=== PATIENT | male | born 2005 | race Caucasian/White ===

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

== ENCOUNTER 2024-06-08 16:06 | Emergency (ER) | payer OTHER, MEDICAID, SELFPAY ==
[2024-06-08 16:16] VITALS: BP 92/62; PULSE 83; RESP 16; TEMP 36.9; O2SAT 97
--- NOTE | 2024-06-08 17:45 | DI.RAD_ITS ---
Exam(s) XR HAND LT COMPLETE EXAM: XR HAND LT COMPLETE CLINICAL HISTORY: L hand bruise, index finger swelling. TECHNIQUE: 2D digital imaging was performed. Three views. COMPARISON: No exams were available for comparison FINDINGS: BONES: No acute fracture is present. No bony destructive lesion is seen. JOINTS: No dislocation present. SOFT TISSUE: Swelling of dorsum of hand and index finger. No foreign body. IMPRESSION: Soft tissue swelling. No acute bony abnormality. DATA REPOSITORY: RADIATION DOSE DELIVERED:
--- NOTE | 2024-06-08 17:59 | ED.GENADUL_ITS ---
Discharge Plan Disposition Patient Disposition: Home Condition: Stable Discharge Details Clinical Impression: Contusion of left hand Primary Care Provider: Jenny Castañeda ED Provider: Ata Addison Home Meds and New Rx's Prescriptions: Continued Gummies Children Multivitamin 1 EACH tablet,chewable 1 ea PO DAILY melatonin 10 mg Tablet 10 mg PO HS Valtoco 10 mg/spray (0.1 mL) spray,non-aerosol 10 mg INTRANASAL ONCE PRN Patient Comments: INSTILL 1 SPRAY INTO NOSTRIL NEEDED FOR SEIZURE LASTING MORE THAN 5 MINUTES DAILY MAX 1 SPRAY trazodone 50 mg tablet 50 mg PO HS Patient Comments: TAKE ONE TABLET BY MOUTH AT BEDTIME valproic acid 250 mg capsule 250 mg PO BID guanfacine 2 mg tablet extended release 24 hr 2 mg PO HS Discharge Instructions Instructions: Minor Contusion ED Additional Instructions: You were seen in the emergency department for the moderate contusion of your left hand, please rest, ice, compress and elevate the area often, take Tylenol and ibuprofen as needed for pain. Please return for any emergent concern Referrals: Jenny Castañeda [Primary Care Provider] - Discharge Data Discharge Date/Time-TO BE ENTERED AT DEPARTURE: 06/08/24 19:01 HPI General Date/Time Provider Initiated Documentation: 06/08/24 16:23 . HPI Narrative: 19 year-old male presents to ED today by POV/ambulating with his mother with a chief complaint of swelling to L first finger and minor bruise to dorsal hand- R-hand dominant with onset unknown- patient is a poor historian due to cognitive issues- cannot state if he hit it on anything or not. Quality described as minor pain, no radiation to inability to move the hand. Severity is described as unable to quantify. Palliating factors include nothing specific attempted. Provoking factors include nothing specific. Patient not anticoagulated. Related Data Home Medications ?Medication ?Instructions ?Recorded ?Confirmed pediatric multivitamin no.30 1 ea PO DAILY 09/13/17 06/08/24 (Gummies Children Multivitamin chewable tablet) melatonin 10 mg tablet 10 mg PO HS 01/20/21 06/08/24 guanfacine 2 mg tablet,extended 2 mg PO HS 12/27/22 06/08/24 release 24 hr trazodone 50 mg tablet 50 mg PO HS 12/27/22 06/08/24 valproic acid 250 mg capsule 250 mg PO BID 12/27/22 06/08/24 diazepam 10 mg/spray (0.1 mL) 10 mg intranasal ONCE PRN 06/08/24 06/08/24 nasal spray (Valtoco) Allergies Allergy/AdvReac Type Severity Reaction Status Date / Time No Known Allergies Allergy Unverified 06/08/24 16:15 General Stated Complaint: Orthopedic ADRIANA: 4 Review of Systems All systems reviewed & are unremarkable except as noted in HPI and below Exam Narrative Exam Narrative: GENERAL APPEARANCE: Well-nourished, non-toxic, awake and alert, atraumatic, no acute distress. SKIN: Warm, pink, dry, intact, without rashes/lesions/ulcerations. HEAD: Normocephalic, atraumatic, normal hair distribution for gender/age. EYES: Normal conjunctiva, no exudates on lids/lashes. ENT: Nares patent, no circumoral cyanosis, no facial swelling NECK: Supple, trachea midline, painless cervical ROM. LUNGS/CHEST: Non-labored respirations, normal A/P diameter, symmetrical expansion, no chest wall deformity HEART (CV/PV): Regular rate, L radial pulse 2+, no peripheral edema, no JVD. ABDOMEN: Soft, non-distended, no guarding. MSK: Normal ROM, no swelling/deformity to bilateral UEs or LEs, moving all extremities without weakness, no cyanosis, spine midline without tenderness, normal curvature, minor bruise to dorsum of left hand with pain endorsed without crepitus or swelling to left index finger and anatomical snuffbox with patient intact, locomotive supervisor strength 5/5 NEURO: Mental Status AAOx4 - alert to person, place, time, events No facial droop, no forehead involvement. Motor: No focal weakness - strength 5/5 in bilateral UEs and LEs, proximal and distal, symmetric. Sensory: sensation intact to light touch globally. Gait normal: patient ambulated without ataxia into ED room. PSYCH: euthymic, cooperative, pleasant, appropriate speech Course Vital Signs Vital signs: Vital Signs Temperature 36.9 C 06/08/24 16:16 Pulse 83 06/08/24 16:16 Respiratory Rate 16 06/08/24 16:16 Blood Pressure 92/62 L 06/08/24 16:16 Pulse Oximetry 97 06/08/24 16:16 Temperature 36.9 C 06/08/24 16:16 Temperature Source Oral 06/08/24 16:16 Pulse 83 06/08/24 16:16 Respiratory Rate 16 06/08/24 16:16 Blood Pressure 92/62 L 06/08/24 16:16 Blood Pressure Position Sitting 06/08/24 16:16 Pulse Oximetry 97 06/08/24 16:16 Oxygen Delivery Method Room Air 06/08/24 16:16 Oxygen Flow Rate 0 06/08/24 16:16 Pain Level 0 06/08/24 16:16 Comment denies pain 06/08/24 16:16 Medical Decision Making This dictation utilizes [id number] dictation software and may contain unedited grammatical errors. 19 year-old male presents to ED today by POV/ambulating with his mother with a chief complaint of swelling to L first finger and minor bruise to dorsal hand- R-hand dominant with onset unknown- patient is a poor historian due to cognitive issues- cannot state if he hit it on anything or not. Quality described as minor pain, no radiation to inability to move the hand. Severity is described as unable to quantify. Palliating factors include nothing specific attempted. Provoking factors include nothing specific. Patients' medical history: developm ental disorder. Family and social history: noncontributory. Pertinent exam findings / vital signs include minor bruise to dorsum of left hand with pain endorsed without crepitus or swelling to left index finger and anatomical snuffbox with patient intact, locomotive supervisor strength 5/5. Differential / pathologies of concern include contusion, fracture. Diagnostic studies of: -XR L Hand - no acute fracture. Interventions of: -none. ED Course/Assessment/Plan: 19-year-old male with cognitive disability presents with a minor bruise to the dorsum of his left hand and endorses some mild left index finger swelling, no evidence to suspect fracture on exam or x-ray, counseled on RICE therapy and Tylenol and ibuprofen, strict return criteria for any signs of neurovascular compromise. Findings not consistent with [ ]. Disposition of Contusion of Left Hand. Patient verbalized understanding of the plan and return to ED criteria and engaged in shared decision making. Medical Records Medical records reviewed: Yes I reviewed the patient's medical records. Imaging Data Radiologic Study: Attestation: I personally reviewed and interpreted this imaging study as follows: Imaging: X-Ray Radiologist's impression: Exam: XR Left Hand Exam date and time: 06/08/2024 6:09 PM Age: 19 years old Clinical indication: Pain; Fingers; Left; Finger(s); L hand bruise, index finger swelling TECHNIQUE: Imaging protocol: Radiologic exam of the left hand. Views: 3 or more views. COMPARISON: No relevant prior studies available. FINDINGS: Bones/joints: Bone density is appropriate. Bony alignment is anatomic. No evidence for fracture. Soft tissues: There is soft tissue swelling at the base of the 2nd digit. IMPRESSION: Soft tissue swelling noted. No evidence for fracture. Dictated and Authenticated by: Luiza Almeida MD. Quality:SDOH Health Related Social Needs: No Data to Display PFSH All Active Problems (Updated 06/08/24 @ 18:54 by SUNITHA Manzanares) Contusion of left hand (Acute) Closed fracture of left great toe (Acute 01/20/21) Medical History Development disorder, child Social History Smoking/Tobacco Use Status: Never Smoking risk assessment performed?: Yes Alcohol Intake: never Drug use: Never Substance use type: does not use Housing: house Current gender identity: male Do you feel safe at home: Yes Additional Social history: mom at side, very supportive
--- NOTE | 2024-06-08 18:48 | DI.VRAD_ITS ---
PROCEDURE INFORMATION: Exam: XR Left Hand Exam date and time: 06/08/2024 6:09 PM Age: 19 years old Clinical indication: Pain; Fingers; Left; Finger(s); L hand bruise, index finger swelling TECHNIQUE: Imaging protocol: Radiologic exam of the left hand. Views: 3 or more views. COMPARISON: No relevant prior studies available. FINDINGS: Bones/joints: Bone density is appropriate. Bony alignment is anatomic. No evidence for fracture. Soft tissues: There is soft tissue swelling at the base of the 2nd digit. IMPRESSION: Soft tissue swelling noted. No evidence for fracture. Dictated and Authenticated by: Luiza Almeida MD. Orderin Azael Berumen MD
[2024-06-08 19:00] VITALS: BP 92/62; PULSE 83; RESP 16; TEMP 36.9; O2SAT 97
== END 2024-06-08 19:01 | disposition home or self-care (01) ==
PROVIDERS: Emergency Provider Physician Assistant; PCP Pediatrics
DX: S60.222A Contusion of left hand, initial encounter; X58.XXXA Exposure to other specified factors, initial encounter
CPT/HCPCS: 99283; 73130